=== PATIENT | female | born 1985 | race Caucasian/White ===

== ENCOUNTER 2020-11-27 16:52 | Emergency (ER) | payer OTHER ==
[~2020-11-27] VITALS: Ht 167.6 cm; Wt 54.4 kg
[~2020-11-27 16:52] MED LIST: ACETYL L-CARNI500 MG PO; ADVIL200 M1 PO; COQ10 SG 100 S1 EACH PO; DAILY MULTIPLE1 EACH PO; MOTRIN IB200 MG PO; NORCO 5-325 TA1 EACH PO; PRILOSEC10 MG PO; TRIAMCINOLONE A15 G1 TOP; VITAMIN D1000 UNIT PO; ZOFRAN ODT8 MG PO
== END 2020-11-27 20:40 | disposition home or self-care (01) ==
LOC: ED 16:52
DX: S16.1XXA Strain of muscle, fascia and tendon at neck level, initial encounter (principal); V89.2XXA Person injured in unspecified motor-vehicle accident, traffic, initial encounter
CPT/HCPCS: 72125; 73030; 99284-25; A9270

== ENCOUNTER 2021-11-28 05:40 | Day surgery (SDC) | payer OTHER ==
--- NOTE | 2021-11-21 14:37 | NUR ---
PT REPORTS TO HAVING COVID IN APRIL OF 2021. SHE PRESENTED AT THAT TIME WITH COUGH, DE LUNA FOR THREE DAYS. SHE DID NOT HAVE SOB OR NEED TO BE IN THE HOSPITAL. SHE DID NOT HAVE A COVID TEST DUE TO HER BOYFREIND AT THE TIME TESTED POSITIVE AND THREE OTHER FREINDS.
[~2021-11-28] VITALS: Ht 167.6 cm; Wt 63.6 kg
[~2021-11-28 05:40] MED LIST changes: +VITAMIN B122500 MC1 PO
--- NOTE | 2021-11-28 09:18 | NUR ---
11/28/21 0918 Aliza Jerez 0911 PT ARRIVED TO PACU WITH ORAL AIRWAY IN PLACE, PT NONAROUSABLE WITH 6L VIA MASK IN PLACE. INCREASED BP AND CUSTODIAL SUPERVISOR AWARE.
--- NOTE | 2021-11-28 10:28 | NUR ---
PATIENT APPEARS DROWSY, BEDSIDE REPORT FROM GÓMEZ PALMER. PATIENT REPORTS PAIN 5/10 ON PAIN SCALE. PROVIDED ICE WATER AND CRACKERS, SEE IF PATIENT IS ABLE TO TOLERATE SUBSTANCE WITHOUT NAUSEA. LAP SITES TO LOWER ABDOMEN C/D/I WITH BANDAID AND STERI STRIPS. MINDY PAD IN PLACE. CORTES CATHETER DRAINING FLOURESCENT YELLOW URINE. CALL LIGHT WITHIN REACH, NO OTHER NEEDS AT THIS TIME.
--- NOTE | 2021-11-28 10:49 | NUR ---
PT EATING CRACKERS AND DRINKING WATER TOLERATING WELL. SHE REPORTS PAIN IS NOW 3/10, SHE REPORTS PAIN IS TOLERABLE AT THIS TIME. SHE IS STILL DROWSY BUT WAKES TO EAT AND DRINK. CORTES PATENT DRAINING BRIGHT YELLOW URINE. SIDE RAILS UP CALL LIGHT WITHIN REACH ANDI BAUTISTA AND WARM BLANKETS GIVEN.
--- NOTE | 2021-11-28 11:50 | NUR ---
PTS HAS LOW BP COMPLAINS OF CHEST PAIN SHE REPORTS SHE DOESNT KNOW IF ITS FROM ANXIETY OR HER HEART, YULISSA ASSEMBLER WATCH TRAIN NOTIFIED EKG DONE SHOWS SINUS KAIN. PT REPORTS SHE HAS PANIC ATTACKS. NO OTHER SYMPTOMS REPORTED, YULISSA ORDERED ANOTHER LITER OF FLUIDS. PT AWAKE, ALERT AND TALKING.
--- NOTE | 2021-11-28 12:44 | NUR ---
1230 CORTES REMOVED 100ML OF BRIGHT YELLOW URINE IN CORTES BAG, MINDY PAD CLEAN AND DRY. PT REPORTS MINIMAL AND TOLERABLE PAIN. PT WANTED TO TRY TO VOID SO SHE CAN GO HOME, WALKED HER TO THE BATHROOM SHE WAS ABLE TO VOID ABOUT 50ML OF YELLOW URINE. SHE WALKED BACK TO ROOM WITHOUT ASSIST AND GOT BACK INTO BED. TOTAL OF 600ML OF CLEAR URINE DRAINED FROM CORTES BAG IN DAY SURGERY.
--- NOTE | 2021-11-28 13:27 | NUR ---
1000ML OF LR COMPLETED, PT UP TO THE BATHROOM SHE WAS ABLE TO VOID 100ML YELLOW URINE, REPORTS READINESS TO GO HOME IV DC'D. BP IMPROVED.
--- NOTE | 2021-11-28 15:06 | OR ---
[facility] [address] [place] [id number] Signed DATE OF OPERATION: 11/28/2021 SURGEON: Devendra Adkins MD Patient of Dr. Adkins. PREOPERATIVE DIAGNOSIS: Recurrent cervical dysplasia. POSTOPERATIVE DIAGNOSIS: Recurrent cervical dysplasia. PROCEDURE: Total laparoscopic hysterectomy with bilateral salpingectomy and cystoscopy. WATER PURIFICATION CHEMIST: Bonnie Donovan DO ANESTHESIA: General. ESTIMATED BLOOD LOSS: 25 mL. SPECIMEN: Uterus with cervix, both fallopian tubes. DRAINS: Ngo to bladder. FINDINGS: Normal vagina. Normal cervix. Normal size and shape uterus, both tubes were normal in length with a normal-appearing fimbriated end, with evidence of previous tubal ligation with midportion of the tube missing bilaterally and normal ovaries bilateral. Rest of the pelvis was free of any masses or adhesions. COMPLICATIONS: None. DESCRIPTION OF PROCEDURE: Electronically Signed By: DEVENDRA ADKINS MD 11/28/21 1506 PATIENT NAME: CAROL ANNROMAJOLLY CISNEROS OPERATIVE REPORT DATE OF : 89 REPORT #: [id number] PHYSICIAN: DEVENDRA ADKINS MD PCP: LISA NUNEZ PAC REPORT IS CONFIDENTIAL AND NOT TO BE RELEASED WITHOUT AUTHORIZATION [address] [address] Signed The patient was brought to the operating room and placed supine position. After adequate general anesthesia was obtained, she was placed in dorsal lithotomy position, prepped and draped in usual sterile fashion. Ngo catheter was placed in the bladder and a weighted speculum was placed in the vagina. The cervix was grasped with an Allis clamp and the cervix serially dilated. VCare uterine manipulator was then inserted through the cervix into the uterus and the Allis clamp was removed. The balloon filled with water and then the cervical cap slid up around the cervix. The vaginal cup slid up against the cervical cap and tightened in place to hold the cap around the cervix. The weighted speculum was removed. Attention was then drawn to the abdomen. A small infraumbilical skin incision was made with a scalpel after injecting the area with 0.25% Marcaine with epinephrine. The subcutaneous tissue was dissected with Metzenbaum scissors and the fascia grasped with hemostats elevated, nicked with Metzenbaum scissors and extended in transverse fashion using Metzenbaum scissors. The retention stitches of 0 Vicryl suture placed above and below the incision. The abdominal wall peritoneum was bluntly entered with a finger. An S retractor was inserted into the incision. The Hetal cannula and sleeve then entered the abdomen under direct visualization. The S retractor was removed. The balloon filled with air and the trocar removed. The outer sleeve was slid down and tightened against the skin and the retention stitches attached to the outer sleeve. The laparoscope with video attachment entered the abdomen under direct visualization. Carbon dioxide was used as distending medium. The above findings were noted. On the left side just below the level of the umbilicus and approximately 10 cm lateral to the midline, abdominal wall was transilluminated to avoid any vessels. Skin was injected with 1% lidocaine with epinephrine and then a small skin incision made. A bladed 5-mm trocar and sleeve entered the abdomen under direct visualization. The trocar was removed and the balloon of the sleeve was filled with air. The blunt grasper inserted through this side. On the right side again just below the level of the umbilicus and approximately 10 cm lateral to the midline, the abdominal wall was transilluminated. The skin injected with 0.25% Marcaine with epinephrine and then the skin incision made with a scalpel on this side. The 12 mm trocar and sleeve entered the abdomen under direct visualization. The trocar was removed and 2nd blunt grasper inserted. The above findings were confirmed. The LigaSure bipolar forceps were then brought in and the two fallopian tubes were removed by cauterizing and cutting along the mesosalpinx down the proximal portion of the tube and then cauterizing and cutting across the tube. Each tube was removed through the right lateral port. The utero-ovarian ligaments were cauterized in several places on each side and cut. The left upper pedicle including the round ligament was cauterized in several places and cut and then the upper pedicle cauterized and cut and until the anterior and posterior leaves of the broad ligament could be identified. These were then individually cauterized and cut down the side of the uterus towards the cervical cap and along the cervical cap to the midline anterior and posterior to the uterus. The Electronically Signed By: DEVENDRA ADKINS MD 11/28/21 1506 PATIENT NAME: ROMA MAHARAJ OPERATIVE REPORT DATE OF : [birth year] REPORT #: [id number] PHYSICIAN: DEVENDRA ADKINS MD PCP: LISA NUNEZ PAC REPORT IS CONFIDENTIAL AND NOT TO BE RELEASED WITHOUT AUTHORIZATION [address] [address] Signed uterine vessels were then exposed and they were cauterized in several places and cut. This was taken down until reaching the vaginal wall, which appeared to be a mostly avascular area. The right side was then done in similar fashion, cauterizing and cutting the round ligament, cauterizing and cutting the upper pedicle and then individually cauterizing and cutting the anterior and posterior leaves of the broad ligament down the side and connecting with previous dissection. The exposed uterine vessels were cauterized in several places and cut down to the level of the vaginal wall. With the dissection carried down to the vaginal wall, the Sonicision was brought to the operating field. The vaginal tissue opened in the midline in the groove of the cervical cap and then opened in the groove of the cervical cap from posterior to anterior on the left side and then posterior to anterior on the right side the uterus from the vagina. Attention drawn to the vagina, where the [employer] uterine manipulator was carefully removed removing the uterus at the same time. This was passed off the field. A sponge filled glove was then placed in the vagina, so the abdomen could be re-insufflated. Attention was then drawn back to the abdomen where the abdomen was again filled with carbon dioxide and the entire pelvis irrigated, suctioned and any superficial bleeding spots cauterized with the LigaSure forceps, bipolar forceps. The Endo Stitch with barbed suture was then used to close the cuff. This was started at the right uterosacral ligament, passing the needle posterior to anterior through the posterior vaginal wall and then placing the suture through the loop at the end of the barbed suture and then placing the suture posterior to anterior at the right angle. The closure was carried in this fashion from the left to the right 1st incorporating the posterior vaginal wall, then individually and then anterior vaginal wall and then moving across until reaching the right uterosacral ligament and at this point, the stitch was brought back towards the middle and superficially in the combined cuff to the midline to secure the suture. Laparoscopic scissors were then used to cut the suture against the vaginal wall. The entire pelvis was irrigated, suctioned and examined, noted at this point to have good hemostasis. Tisseel was sprayed over the area of dissection to further help with hemostasis. All instruments were removed from the abdomen. The right port was then removed and a Ryan-Randi instrument was used to place 0 Vicryl suture on one side through the fascia into the abdomen under direct visualization. The suture was held with in the abdomen with [place] forceps and then the grasper placed through the other side of the incision and the suture pulled up through the fascia again under direct visualization. The Ryan-Randi instrument was then removed and the 0 Vicryl suture tied closing the larger fascial incision so the abdomen could be insufflated. The closure was examined with the laparoscope and noted to have good hemostasis and good closure of the fascia. All instruments were then removed. The gas allowed to escape and the final sleeve removed. The infraumbilical fascia was closed using running stitch of 0 Vicryl suture. The three incisions were examined, any Electronically Signed By: DEVENDRA ADKINS MD 11/28/21 1506 PATIENT NAME: ROMA MAHARAJ OPERATIVE REPORT DATE OF : 89 REPORT #: [id number] PHYSICIAN: DEVENDRA ADKINS MD PCP: LISA NUNEZ PAC REPORT IS CONFIDENTIAL AND NOT TO BE RELEASED WITHOUT AUTHORIZATION [facility] [address] [place], [place] [address] Signed superficial bleeding spots cauterized with the Bovie. The 3 skin incisions were then closed using 4-0 Vicryl and subcuticular stitches. The sponge filled glove was removed. The Ngo catheter removed and cystoscopy performed. A 70-degree cystoscope was placed in the urethra and entered the bladder under direct visualization. Sterile water was used as distending medium. The bladder showed no defects, no lesions, no sutures. The trigone did show some diffuse hyperemia. Both ureteral orifices were seen and good jets of urine was noted to come from each. The bladder drained and the cystoscope removed. The Ngo catheter was placed back in the bladder. The patient tolerated the procedure well, went to recovery room in good condition. The sponge, needle, and instrument count was correct at the end of the procedure. The uterus and both fallopian tubes were sent to Pathology for identification. Devendra Adkins MD MJB/JOEL /[id number] cc: Lisa Nunez PA-C Copies: LISA NUNEZ ~ Electronically Signed By: DEVENDRA ADKINS MD 11/28/21 1506 PATIENT NAME: ROMA MAHARAJ OPERATIVE REPORT DATE OF : 89 REPORT #: [id number] PHYSICIAN: DEVENDRA ADKINS MD PCP: LISA NUNEZ REPORT IS CONFIDENTIAL AND NOT TO BE RELEASED WITHOUT AUTHORIZATION
--- NOTE | 2021-11-30 15:57 | EKG ---
[facility] [address] [place], [place] [address] Signed Sinus bradycardia Otherwise normal ECG When compared with ECG of 28-NOV-2021 11:33, (Unconfirmed) No significant change was found Confirmed by TASH WONG MD ([id number]) on 11/30/2021 3:57:06 PM Electronically Signed By: TASH WONG MD 11/30/21 1557 PATIENT NAME: ROMA MAHARAJ Electrocardiogram DATE OF : 89 PHYSICIAN: TASH WONG MD REPORT #: [id number] REPORT IS CONFIDENTIAL AND NOT TO BE RELEASED WITHOUT AUTHORIZATION
--- NOTE | 2021-12-03 16:31 | PATH ---
[facility] [address] [place], [place] [address] Signed SPECIMEN(S): A CERVIX, UTERUS, BILATERAL TUBES SPECIMEN SOURCE: A. 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 FINAL PATHOLOGIC DIAGNOSIS: Uterus, cervix, and bilateral fallopian tubes, hysterectomy and bilateral salpingectomy: - Cervix: Focal high-grade squamous intraepithelial lesion (HSIL, TADEO 2) at the 6-9 o'clock aspect; ectocervical margin negative for dysplasia. - Endometrium: Weakly proliferative endometrium. - Myometrium: No histopathologic abnormality. - Fallopian tubes: Two detached fallopian tubes with paratubal cysts, one fallopian tube containing endometrial glands and stroma, see Comment. - No evidence of malignancy. COMMENT: One of the two undesignated fallopian tubes has detached fragments of weakly-proliferative endometrial glands and stroma with focal stromal breakdown admixed with blood in the tubal lumen. No hemosiderin-laden macrophages are seen. Given the detached and fragmented nature of the endometrial elements, this is favored to represent an artifact of specimen processing. However, endometriosis cannot be entirely excluded, and additional clinical correlation is required. NAL:cml:C2NR MICROSCOPIC EXAMINATION: Histologic sections of all submitted blocks are examined by light microscopy. These findings, together with the gross examination, support the pathologic diagnosis. GROSS DESCRIPTION: The specimen, labeled "EP, A," and designated on the requisition "cervix, uterus with bilateral tubes, recurrent cervical intraepithelial neoplasia," is received in formalin and consists of a uterus (116 g, 6.2 cm superior to inferior, 6.0 cm [id number], 5.0 cm inferior posterior), attached cervix (3.0 cm in length by 3.0 cm in diameter ) with pink-gonzalez, smooth cervical mucosa and patent PATIENT NAME: ROMA MAAHRAJ PATHOLOGY DATE OF : 89 REPORT #: [id number] PHYSICIAN: MICH PATHOLOGY PCP: DEVYN WHARTON PAC REPORT IS CONFIDENTIAL AND NOT TO BE RELEASED WITHOUT AUTHORIZATION [facility] [address] [place], [place] [address] Signed slit-shaped os (1.3 x 0.3 cm), and two detached and undesignated fimbriated fallopian tube segments (4.0 cm in length by 0.8 cm in diameter and 5.7 cm in length by 0.6-1.0 cm in diameter). One fallopian tube segment is arbitrarily inked blue. Both fallopian tube segments are brown-gonzalez and are sectioned to reveal a pink-gonzalez cut surface with a paratubal cyst on the un-inked fallopian tube (0.6 cm in greatest dimension). The fimbriae are entirely submitted. The uterine serosa is pink-gonzalez and smooth. The anterior aspect of the cervix is inked blue and the posterior aspect is inked black. The specimen is opened reveal a pink-gonzalez, smooth endocervix (endocervical canal 2.0 x 0.8 cm). A small cone of the cervix is submitted due to recent patient history of TADEO-1. The endometrial cavity (5.2 cm superior to inferior by 2.7 cm [id number]) has a hemorrhagic endometrial lining that measures up to 0.2 centimeters in thickness. The myometrium is pink-gonzalez and trabeculated with no masses. Supervisor [employer] sections are submitted as follows: (A1-A2) fallopian tubes (A3) cervix, 12 o'clock to 3 o'clock aspect (A4) cervix, 3 o'clock to 6 o'clock aspect (A5) cervix, 6 o'clock to 9 o'clock aspect (A6) cervix, 9 o'clock to 12 o'clock aspect (A7) endomyometrium AC (under the direct supervision of a pathologist) The remainder of the blue inked fallopian tube is submitted in cassette A8 at the request of Dr. Finnegan. AC (under the direct supervision of a pathologist) The Gross Description was prepared using a voice recognition system. The report was reviewed for accuracy; however, sound-alike word errors, addition and/or deletions may occur. If there is any question about this report, please contact Client Services. PERFORMING LABORATORY: The technical component was performed [place] [address] (Junior Project Coordinator: Stephanie Paniagua MD; CLIA# [id number]). Professional interpretation was performed by [place] [facility] [place] [address] (CLIA# [id number]). Diagnostician: Zoe Finnegan MD Pathologist PATIENT NAME: ROMA MAHARAJ PATHOLOGY DATE OF : [birth year] REPORT #: [id number] PHYSICIAN: MICH MERIDA PCP: DEVYN WHARTON PAC REPORT IS CONFIDENTIAL AND NOT TO BE RELEASED WITHOUT AUTHORIZATION [place] [address] Signed Electronically Signed 12/03/2021 Copies: ~ PATIENT NAME: ROMA MAHARAJ PATHOLOGY DATE OF : 89 REPORT #: [id number] PHYSICIAN: MICH PATHOLOGY PCP: DEVYN WHARTON PAC REPORT IS CONFIDENTIAL AND NOT TO BE RELEASED WITHOUT AUTHORIZATION
== END 2021-11-28 13:30 | disposition home or self-care (01) ==
LOC: DS 05:40 → OPS 05:40 → DS 07:30 → OPS 13:30
PROVIDERS: ATTEND General Practice
PROC: 0UT94ZZ Resection of Uterus, Percutaneous Endoscopic Approach (ICD-10-PCS; principal; 2021-11-28 07:30)
PROC: 0UT74ZZ Resection of Bilateral Fallopian Tubes, Percutaneous Endoscopic Approach (ICD-10-PCS; 2021-11-28 07:30)
DX: N87.1 Moderate cervical dysplasia (principal); N83.8 Other noninflammatory disorders of ovary, fallopian tube and broad ligament; Z87.891 Personal history of nicotine dependence; Z88.2 Allergy status to sulfonamides
CPT/HCPCS: 93005; 93010; C1713; J0690; J1100; J1644; J1885; J1940; J2001; J2250; J2300; J2405; J2704; J7121